=== PATIENT | male | born 1950 | race Caucasian/White ===

== ENCOUNTER → 2016-06-06 | Day surgery (SDC) | payer OTHER ==
[~2016-06-06] MED LIST: ENAL5TAB98; LACTATED RINGER'S 1,000 ML BAG IV ONE; LORT5TAB; METO25; PROPOFOL 200 MG/20 ML AMP IV ONE; TAMS0.4C67
== END | disposition home or self-care (01) ==
LOC: ESDC 10:39
PROVIDERS: ATTEND Internal Medicine Gastroenterology
DX: K22.70 Barrett's esophagus without dysplasia (principal); K29.70 Gastritis, unspecified, without bleeding; K22.9 Disease of esophagus, unspecified
CPT/HCPCS: 00740; 43239; 88305; 88312; J3010; J7120